=== PATIENT | female | born 1960 | race Caucasian/White ===

== ENCOUNTER 2019-05-13 12:54 | Emergency (ER) | payer OTHER ==
--- OUTSIDE RECORDS SUMMARY | 2019-05-13 13:06 | XMS REPORT | Continuity of Care Document ---
:1960 External Reference #:[id number] Author Name Shania De Jesus N.P. (transmitted by agent of provider Rebecca Merchant) Address [facility], [place] [address] Care Team Providers Name Role Phone Wendy Muñoz MD - Family Care Team Information Finance Intern [phone] Medicine Problems Active Problems Provider Date Chest pain Rik Yost M.D. Onset: 01/26/2012 Electrocardiogram abnormal Rik Yost M.D. Onset: 01/26/2012 Tachycardia Rik Yost M.D. Onset: 01/26/2012 Palpitations Rik Yost M.D. Onset: 01/26/2012 Social History Type Date Description Comments Sex Unknown Tobacco Use Start: Unknown End: Former Cigarette Smoker Unknown Smoking Status Reviewed: 05/04/19 Former Cigarette Smoker ETOH Use Rarely consumes alcohol About 1x per month Tobacco Use Start: Unknown End: Patient is a former social in her 30's Unknown smoker Recreational Drug Use Denies Drug Use Exercise Type/Frequency Exercises regularly Exercise Type/Frequency Walks daily Allergies, Adverse Reactions, Alerts Active Allergies Reaction Severity Comments Date Sulfa flu sx, neck pain 01/26/2012 Latex 03/30/2016 Cipro rash 08/13/2017 Environmental Dust, pollen, mold 09/20/2018 Kiwi Fruit Itchy throat 09/20/2018 Stokes Fruit Itchy throat 09/20/2018 Medications Active Medications SIG Qnty Indications Ordering Date Provider Vitamin D High once a day 90caps Shania De Jesus N.P. 05/04/2019 Potency 25mcg (1000 Ut) Capsules Estradiol apply 1 gram daily 42.500gm Shania De Jesus, N.P. 05/04/2019 0.1mg/GM x 2 weeks and then Cream apply twice weekly Mandibular Please yusuf G47.33 Pebbles 11/09/2018 Advancement Device mandibular SOULEYMANE Padilla advancement device Device for mild sleep apnea Multivitamins 1 by mouth every Unknown day Capsules Calcium 500 + D 1 by mouth every 180tabs Unknown day [id number] Tablets Magnesium 250mg twice daily Unknown Eye Health Unknown Aspirin Adult As needed Unknown Immunizations Description No Information Available Vital Signs Date Vital Result Comment 05/04/2019 10:11am Height 66 inches 5'6" Weight 136.00 lb Heart Rate 67 /min BP Systolic 100 mmHg BP Diastolic 65 mmHg O2 % BldC Oximetry 97 % BMI (Body Mass Index) 21.9 kg/m2 11/09/2018 2:49pm Height 66 inches 5'6" Weight 131.38 lb Heart Rate 64 /min BP Systolic Sitting 82 mmHg Lue reg cuff BP Diastolic Sitting 64 mmHg Lue reg cuff Respiratory Rate 16 /min O2 % BldC Oximetry 97 % On Ra BMI (Body Mass Index) 21.2 kg/m2 Results Description No Information Available Procedures Date Code Description Status 04/12/2018 80592665 Mammogram Completed 05/17/2017 [id number] Bone Mineral Density Test Completed 12/17/2015 [id number] Mammogram Completed Medical Devices Description No Information Available Encounters Type Date Location Provider Dx Diagnosis Office Visit 01/27/2019 [facility] Dermatology Kaela Rob, D22.72 Melanocytic nevi of 10:00a left lower limb, including hip L82.1 Other seborrheic keratosis D22.5 Melanocytic nevi of trunk Office Visit 11/09/2018 [facility] G47.33 Obstructive sleep 3:[facility]p [facility] apnea (adult) [facility] (pediatric) R53.83 Other fatigue Assessments Date Code Description Provider 01/27/2019 D22.72 Melanocytic nevi of left lower limb, Kaela Rob MD including hip 01/27/2019 L82.1 Other seborrheic keratosis Kaela Rob MD 01/27/2019 D22.5 Melanocytic nevi of trunk Kaela Rob MD 11/09/2018 G47.33 Obstructive sleep apnea (adult) (pediatric) Pebbles Padilla NP 11/09/2018 R53.83 Other fatigue Pebbles Padilla NP Plan of Treatment Future Appointment(s):08/01/2019 10:00 am - Derek German MD at [facility] Okzxzyxcpwt50/20/2020 3:30 pm - Kaela Rob MD at [facility] Dermatology Functional Status Description No Information Available Mental Status Description No Information Available Referrals Description No Information Available
[2019-05-13 14:48] LABS: ABS Basophils 0.1 10^3/ul (0-0.2); ABS Lymphocytes 0.8 10^3/ul (1.0-4.8); ABS Monocytes 0.4 10^3/ul (0-0.8); Eosinophil % 0.6 %; Hematocrit 41 % (35-47); Hemoglobin 14.5 g/dL (12.0-16.0); Lymphocyte % 12.3 %; Mean Corpuscular HGB Conc 35 g/dL (31-36); Mean Corpuscular Hemoglobin 33 pg (27-31); Mean Corpuscular Volume 93 fL (80-97); Mean Platelet Volume 7.9 fL (7.4-10.4); Platelet Count 200 10^3/uL (150-450); Red Blood Count 4.42 10^6 /uL (3.70-4.87); Red Cell Distribution Width 13 % (10-15); White Blood Count 6.3 10^3/uL (3.5-10.8)
--- NOTE | 2019-05-13 15:02 | ED ---
Throat Pain/Nasal Congestion - HPI Summary HPI Summary: Pt. is a 59 y.o female who presents to the ER for facial swelling x 1 day. Pt. states she has been having lower dental pain x several days and saw a dentist yesterday. Pt. states she was told she had an infection and was placed on clindamycin. Pt. states she took 2-3 doses and this morning noticed swelling to her lower jaw. Denies fever, rash, cp, sob, difficulty swallowing. Numerous drug allergies. Pt. is concerned she is having a rxn to clinda. She called her dentist who called her in a new rx for amoxicillin. Sxs are mild in severity. NO current modifying factors. - History of Current Complaint Chief Complaint: EDDentalPain Time Seen by Provider: 05/13/19 14:11 Hx Obtained From: Patient - Allergies/Home Medications Allergies/Adverse Reactions: Allergies Allergy/AdvReac Type Severity Reaction Status Date / Time clindamycin Allergy Mild Swelling Verified 05/13/19 15:06 ciprofloxacin [From Cipro] Allergy Rash Verified 05/13/19 15:06 kiwi Allergy itching in Verified 05/13/19 15:06 throat latex Allergy Rash Verified 05/13/19 15:06 peach Allergy itching in Verified 05/13/19 15:06 throat Sulfa (Sulfonamide Allergy Muscle Ache Verified 05/13/19 15:06 Antibiotics) Home Medications: Home Medications Amoxicillin 500 mg PO TID 05/13/19 [History Confirmed 05/13/19] PMH/Surg Hx/FS Hx/Imm Hx Previously Healthy: Yes Endocrine/Hematology History: Denies: Hx Diabetes Cardiovascular History: Denies: Hx Hypertension, Hx Pacemaker/ICD Respiratory History: Denies: Hx Asthma History: Denies: Hx Renal Disease Sensory History: Denies: Hx Hearing Aid Psychiatric History: Denies: Hx Panic Disorder - Cancer History Hx Chemotherapy: No Hx Radiation Therapy: No - Surgical History Surgery Procedure, Year, and Place: WATER REMOVED FROM KNEES ,LT [facility] 2006, WISDOM TEETH, SKIN BIOPSIES, Infectious Disease History: No Infectious Disease History: Denies: Traveled Outside the [place] in Last 30 Days Review of Systems Constitutional: Negative Positive: Dental Pain Cardiovascular: Negative Respiratory: Negative Gastrointestinal: Negative Skin: Negative Negative: Rash Neurological: Negative All Other Systems Reviewed And Are Negative: Yes Physical Exam Triage Information Reviewed: Yes Vital Signs On Initial Exam: Initial Vitals Temp Pulse Resp BP Pulse Ox 98.9 F 94 15 122/91 98 05/13/19 12:56 05/13/19 12:56 05/13/19 12:56 05/13/19 12:56 05/13/19 12:56 Vital Signs Reviewed: Yes Appearance: Positive: Well-Appearing - Pt. sitting up in bed in NAD> Skin: Positive: Warm, Dry Head/Face: Positive: Normal Head/Face Inspection, Other Eyes: Positive: Normal, EOMI, DASHA Dental: Positive: Other - Edema noted to gingiva surrounding bottom right lateral incisor. NO drainable abscess. NO sweling under tongue. NO trismus or submandibular edema. Minimal edema noted about mandible and chin. Neck: Positive: Supple, Nontender, No Lymphadenopathy Respiratory/Lung Sounds: Positive: Clear to Auscultation, Breath Sounds Present Cardiovascular: Positive: Normal, RRR Neurological: Positive: Normal, CN Intact II-III Psychiatric: Positive: Affect/Mood Appropriate Procedures - Sedation Patient Received Moderate/Deep Sedation with Procedure: No Diagnostics - Vital Signs Vital Signs Temp Pulse Resp BP Pulse Ox 05/13/19 12:56 98.9 F 94 15 122/91 98 - Laboratory Lab Results: Lab Results 05/13/19 Range/Units 14:38 WBC 6.3 (3.5-10.8) 10^3/uL RBC 4.42 (3.70-4.87) 10^6 /uL Hgb 14.5 (12.0-16.0) g/dL Hct 41 (35-47) % MCV 93 (80-97) fL MCH 33 H (27-31) pg MCHC 35 (31-36) g/dL RDW 13 (10-15) % Plt Count 200 (150-450) 10^3/uL MPV 7.9 (7.4-10.4) fL Neut % (Auto) 79.6 % Lymph % (Auto) 12.3 % [place] % (Auto) 6.6 % Eos % (Auto) 0.6 % Baso % (Auto) 0.9 % Absolute Neuts (auto) 5.0 (1.5-7.7) 10^3/ul Absolute Lymphs (auto) 0.8 L (1.0-4.8) 10^3/ul Absolute Monos (auto) 0.4 (0-0.8) 10^3/ul Absolute Eos (auto) 0.0 (0-0.6) 10^3/ul Absolute Basos (auto) 0.1 (0-0.2) 10^3/ul Absolute Nucleated RBC 0.0 10^3/ul Nucleated RBC % 0.0 Result Diagrams: 05/13/19 14:38 05/13/19 14:38 Lab Statement: Any lab studies that have been ordered have been reviewed, and results considered in the medical decision making process. EENT Course/Dx - Course Course Of Treatment: Pt. presenting with dental infection. She is afebrile and well appearing. Pt. concerned she may be having an allergic rxn to clinda given mild lower jaw facial edema. No other signs of allergic rxn. Suspect edema likely from infection and not rxn. Labs unremarkable. No signs of ludwigs. Pt. has already started amoxicllin per dentist today. She will f.u with dentist as scheduled. Given return precuations. Pt. understands and agrees with plan. - Differential Diagnoses Differential Diagnoses: Cellulitis, Dental Abscess, Dental Caries, Gingivitis - Diagnoses Provider Diagnoses: Dental infection Discharge ED - Sign-Out/Discharge Documenting (check all that apply): Patient Departure - Discharge Plan Condition: Good Disposition: HOME Patient Education Materials: Dental Abscess (ED) Referrals: Wendy Muñoz MD [Primary Care Provider] - Additional Instructions: Follow up with your dentist as scheduled Apply warm compresses to face Can start amoxicillin and discontinue clindamycin Continue motrin fro pain as directed Return to ER for swelling under jaw, fever, vomiting, difficulty opening your mouth/swallowing or if concerned - Billing Disposition and Condition Condition: GOOD Disposition: Home
[2019-05-13 15:09] LABS: Albumin 4.5 g/dL (3.2-5.2); Albumin/Globulin Ratio 1.9 (1-3); BUN/Creatinine Ratio 15.8 (8-20); C Reactive Protein 2.79 mg/L (<8.01); Calcium 9.2 mg/dL (8.6-10.3); EGFR African American 131.4 (>60); EGFR Non-African American 108.6 (>60); Globulin 2.4 g/dL (2-4); Total Bilirubin 0.8 mg/dL (0.2-1.0); Total Protein 6.9 g/dL (6.4-8.9)
[2019-05-13 15:50] VITALS: BP 106/79
== END 2019-05-13 15:50 | disposition home or self-care (01) ==
LOC: ED 12:54
DX: K04.7 Periapical abscess without sinus (principal); Z88.1 Allergy status to other antibiotic agents; Z88.2 Allergy status to sulfonamides; Z91.040 Latex allergy status
CPT/HCPCS: 36415; 80053; 85025; 86140; 99282